=== PATIENT | male | born 1970 | race Caucasian/White ===

== ENCOUNTER 2023-11-28 15:16 | Emergency (ER) | payer OTHER, SELFPAY ==
--- NOTE | ~2023-11-28 | XR_ITS ---
XR hand LT min 3V Ordering provider: Alana Proctor NP History: . 4 day pain to left hand,5th metacarpal area,no injury . Comparison: None. FINDINGS: BONES: No acute fracture or dislocation. JOINT SPACES: Well maintained. SOFT TISSUES: Unremarkable. IMPRESSION: No acute osseous abnormality left hand. Reviewed, dictated and finalized at location A.
[2023-11-28 15:28] VITALS: BP 121/88; PULSE 67; RESP 16; TEMP 36.6; O2SAT 99
[2023-11-28 15:29] VITALS: BP 121/88; PULSE 67; RESP 16; TEMP 36.6; O2SAT 99
--- NOTE | 2023-11-28 15:30 | ED.EXTPRO ---
HPI - Extremity Problem General Chief complaint: Extremity Problem,Nontraumatic Stated complaint: Left Hand Injury Time Seen by Provider: 11/28/23 15:35 Source: patient, RN notes reviewed and old records reviewed Mode of arrival: ambulatory Limitations: no limitations History of Present Illness HPI Narrative: 52 year old male who presents to [facility] care with complaint of pain to the left hand dorsal area along 5th metacarpal area with no known injury. Patient reports that he has been working on putting in a fence for his daughter and instilling a new floor for his daughter. Patient reports that he picked up his computer with his left hand this morning and he did not have good extension of his hand and discomfort along the 5th metacarpal area.Patient reports that he has had some discomfort in his left hand for 4 days with no exact injury.. MD Complaint: extremity pain (left hand pain) Onset (ago): day(s) (4) Severity scale (1-10): 4 (with movement) Exacerbating factors: other (movement of left hand) Related Data Home Medications Medication Instructions Recorded Confirmed No Home Medications 11/28/23 11/28/23 Allergies Allergy/AdvReac Type Severity Reaction Status Date / Time No Known Allergies Allergy Verified 11/28/23 15:28 Review of Systems Review of Systems: CONSTITUTIONAL: Denies fever, chills, or sweats. EYES: Denies visual changes, redness, or discharge. ENT: Denies rhinorrhea, congestion, sore throat, or otalgia. CARDIOVASCULAR: Denies chest pain, palpitations, or edema. RESPIRATORY: Denies cough or dyspnea. GASTROINTESTINAL: Denies abdominal pain, nausea, vomiting, or diarrhea. GENITOURINARY: Denies dysuria or hematuria. SKIN: Denies rash or itching. MUSCULOSKELETAL: Denies back pain, positive for pain to his left hand dorsal aspect along 5th metacarpal with no known exact injury has been working putting in a fence and new tyrone for his daughter, or myalgia. NEUROLOGIC: Denies headache, numbness, or weakness. PSYCHIATRIC: Denies anxiety or depression. All systems reviewed & are unremarkable except as noted in HPI and below PMFSH Surgical History Surgical History (Updated 11/28/23 @ 17:08 by Alana Proctor NP) History of right knee surgery Social History Social History (Updated 11/28/23 @ 17:08 by Alana Proctor NP) Smoking status: Never smoker Alcohol intake: current Alcohol use details: rare Substance use type: does not use Gender identity (if verbalized by the patient): Male Comments At time of signature, agree with nursing past medical, surgical, social and family history. There is no relevant family history pertinent to the presenting complaint Exam Narrative: GENERAL: Well-appearing, well-nourished, and in no acute distress. HEAD: Normocephalic, atraumatic. EYES: PERRLA and EOMI. ENT: Nares clear, no rhinorrhea or epistaxis. Mucous membranes moist. NECK: Supple. no lymphadenopathy CHEST: Clear to auscultation. No respiratory distress.SAO2 99% on room air HEART: Regular rate and rhythm. No murmur heard. Normal peripheral pulses. ABDOMEN: Soft, nontender, nondistended, normal active bowel sounds. EXTREMITIES: Normal range of motion. No edema.pain to the dorsal area of his left hand with some movements for the past 4 days with no exact injury known, has bee buiding a fence and has been installing tyrone at his daughters. No numbness or tingling to his left hand or finger, strong radial pulse, nail bed robson briskly SKIN: Warm, dry, no rash. NEURO: No focal deficits. Alert and oriented x3. Course Course Emergency Course: Patient is aware of diagnosis, understands and agrees to treatment plan.? Anticipatory guidance given.? Patient agrees to follow-up as directed and is aware of reasons to seek care at the emergency department. Portions of this record may have been created with voice recognition software Level of Care: Express Care Visit Vital Signs Vital signs:
== END 2023-11-28 15:56 | disposition home or self-care (01) ==
PROVIDERS: Emergency Provider Registered Nurse; PCP Physician Assistant
DX: M79.642 Pain in left hand (principal); M70.842 Other soft tissue disorders related to use, overuse and pressure, left hand
CPT/HCPCS: 73130; 99203; G0463